=== PATIENT | female | born 1940 | race African-American/Black ===

== ENCOUNTER 2018-08-21 11:42 | Day surgery (SDC) | payer MEDICARE ==
[2018-08-21 13:41] LABS: INR 1.22 (0.87-1.13)
[2018-08-21 13:42] LABS: Partial Thromboplastin Time 35.8 Sec. (24.2-36.6)
[2018-08-21] MEDS ORDERED: XYLOCAINE 1% 20 mL ONE (14:24)
--- NOTE | 2018-08-21 14:57 | Short Stay Summary ---
Short Stay Documentation Date of service: 08/21/18 - History Principal diagnosis: ascites Past Medical History: liver disease - Allergies and Medications Current Medications: Allergies No Known Allergies Allergy (Verified 06/13/15 14:21) Home Medications Medication Instructions Recorded Confirmed Last Taken Type Furosemide [Lasix] 20 mg PO QDAY 06/13/15 08/21/18 08/20/18 History Insulin Detemir [Levemir Flextouch] 15 unit SQ QHS 06/13/15 08/21/18 08/20/18 History Lactulose [Kristalose] 15 gm PO DAILY 06/13/15 08/21/18 08/20/18 History Spironolactone [Aldactone] 25 mg PO QDAY 06/13/15 08/21/18 08/20/18 History - Physical exam General appearance: no acute distress Gastrointestinal: distended - Brief post op/procedure progress note Date of procedure: 08/21/18 Pre-op diagnosis: ascites Post-op diagnosis: same Procedure: US paracentesis Anesthesia: local Findings: lrge ascites Surgeon: KHANH FAJARDO Estimated blood loss: none Pathology: list (120cc to lab) Specimen disposition: to lab Condition: stable - Disposition Condition at discharge: Good Disposition: DC-01 TO HOME OR SELFCARE Short Stay Discharge Plan Follow up with: [place] ALSTON MD [Primary Care Provider] - 7 Days
[2018-08-21] MEDS ORDERED: ALBURX 25% (ALBUMIN) IV PRN (14:58)
[2018-08-21 16:58] VITALS: BP 112/65
[2018-08-21 17:21] LABS: Total Cells Counted 100 /mm3
--- NOTE | 2018-08-25 07:28 | Ultrasound Report ---
ULTRASOUND PARACENTESIS HISTORY: Unspecified cirrhosis of liver DESCRIPTION OF PROCEDURE: A time out was performed. Informed consent was obtained. Sterile technique was utilized. Using ultrasound guidance, a 5 [place] centesis needle was advanced into the peritoneal space. There was spontaneous return of clear yellow fluid. 4 L of fluid was drained. No complications. IMPRESSION: Successful ultrasound-guided paracentesis.
== END 2018-08-21 17:21 | disposition home or self-care (01) ==
LOC: CATHLABREC 11:42 → EDSTATUS 12:00 → CATHLABREC 17:21
PROVIDERS: ATTEND Internal Medicine Gastroenterology
DX: K70.31 Alcoholic cirrhosis of liver with ascites (principal); H25.12 Age-related nuclear cataract, left eye; K21.9 Gastro-esophageal reflux disease without esophagitis; I12.9 Hypertensive chronic kidney disease with stage 1 through stage 4 chronic kidney disease, or unspecified chronic kidney disease; N18.3 Chronic kidney disease, stage 3 (moderate); M19.90 Unspecified osteoarthritis, unspecified site; Z98.890 Other specified postprocedural states; Z79.899 Other long term (current) drug therapy; Z79.4 Long term (current) use of insulin
CPT/HCPCS: 36415; 49083; 82040; 85610; 85730; 87116; 88112; 88305; 88341; 88342; 89051

== ENCOUNTER 2018-11-13 08:03 | Day surgery (SDC) | payer MEDICARE ==
[2018-11-13 09:00] LABS: INR 1.46 (0.87-1.13)
[2018-11-13 09:02] LABS: Partial Thromboplastin Time 35.5 Sec. (24.2-36.6)
[2018-11-13] MEDS ORDERED: ALBURX 25% (ALBUMIN) IV PRN (10:22)
--- NOTE | 2018-11-13 10:22 | Short Stay Summary ---
Short Stay Documentation Date of service: 11/13/18 - History Principal diagnosis: ascites - Allergies and Medications Current Medications: Allergies No Known Allergies Allergy (Verified 06/13/15 14:21) Home Medications Medication Instructions Recorded Confirmed Last Taken Type Furosemide [Lasix] 20 mg PO QDAY 06/13/15 11/13/18 11/12/18 History Insulin Detemir [Levemir Flextouch] 15 unit SQ QHS 06/13/15 11/13/18 11/12/18 History Lactulose [Kristalose] 15 gm PO DAILY 06/13/15 11/13/18 11/12/18 History Spironolactone [Aldactone] 25 mg PO QDAY 06/13/15 11/13/18 11/12/18 History - Physical exam General appearance: no acute distress Gastrointestinal: normoactive bowel sounds, distended - Brief post op/procedure progress note Date of procedure: 11/13/18 Pre-op diagnosis: ascites Post-op diagnosis: same Procedure: us paracentesis Anesthesia: local Findings: moderate ascites Surgeon: KHANH FAJARDO Estimated blood loss: none Pathology: list (120cc) Specimen disposition: to lab Condition: stable - Hospital course Hospital course: uneventful - Disposition Condition at discharge: Good Disposition: DC-01 TO HOME OR SELFCARE Short Stay Discharge Plan Follow up with: [place] ALSTON MD [Primary Care Provider] - 7 Days
--- NOTE | 2018-11-13 11:18 | Ultrasound Report ---
ULTRASOUND-GUIDED PARACENTESIS HISTORY: Ascities. PROCEDURE: The risks (including but not limited to bleeding, infection, and bowel injury) and benefi ts were explained to the patient and informed consent was obtained. A time out procedure was perform ed. Ultrasound was used to evaluate the abdomen and locate the largest ascites fluid pocket. Once the sk in was marked, the procedure site was prepped and draped in the usual sterile fashion and lidocaine w as used for local anesthesia. A skin maría was made and a 6-Dominican paracentesis catheter was placed. The patient was monitored closely throughout the procedure, and a total of 5100 mL of yellow, clear fluid was aspirated. Samples were sent to the lab for further evaluation per the primary clinicians orders. The patient tolerated the procedure well with no complications. IMPRESSION: Successful paracentesis as above with a total of 5100 mL of yellow, clear fluid aspirated . Signer Name: Satish Evans Jr, MD Signed: 11/13/2018 11:13 AM Workstation Name: [id number]
[2018-11-13 11:54] VITALS: BP 140/56
[2018-11-13 12:12] LABS: Total Cells Counted 100 /mm3
== END 2018-11-13 12:20 | disposition home or self-care (01) ==
LOC: CATHLABREC 08:03 → EDSTATUS 09:00 → CATHLABREC 12:20
PROVIDERS: ATTEND Internal Medicine Gastroenterology
DX: K70.31 Alcoholic cirrhosis of liver with ascites (principal); H25.12 Age-related nuclear cataract, left eye; I10 Essential (primary) hypertension; K21.9 Gastro-esophageal reflux disease without esophagitis; I12.9 Hypertensive chronic kidney disease with stage 1 through stage 4 chronic kidney disease, or unspecified chronic kidney disease; E11.22 Type 2 diabetes mellitus with diabetic chronic kidney disease; N18.3 Chronic kidney disease, stage 3 (moderate); M19.90 Unspecified osteoarthritis, unspecified site; E11.36 Type 2 diabetes mellitus with diabetic cataract; Z79.899 Other long term (current) drug therapy; Z79.4 Long term (current) use of insulin; Z98.890 Other specified postprocedural states; Z82.49 Family history of ischemic heart disease and other diseases of the circulatory system
CPT/HCPCS: 36415; 49083; 85610; 85730; 87116; 88112; 88305; 89051; 96365; P9047